=== PATIENT | female | born 1970 | race Two or more races ===

== ENCOUNTER 2023-12-13 18:35 | Emergency (ER) | payer OTHER, SELFPAY ==
[2023-12-13 18:38] VITALS: BP 168/104; BMI 18.3
--- NOTE | 2023-12-13 23:25 | ED.SKININJ ---
HPI-Injury
<Yasmin Jimenez NP - Last Filed: 12/14/23 17:06>
General
Chief Complaint: Skin Surface Trauma
Source: patient
Exam Limitations: none
Time Seen by Provider: 12/13/23 20:39
Nursing documentation reviewed up to this point in time: agreed with
Travel History
Have you had any contact with someone who has COVID-19?: No
Do you have any symptoms of coronavirus? Fever > 100 degrees, chills, cough, shortness of breath, sore throat, loss of taste or smell, muscle aches, or headache?: No
History of Present Illness-Injury
Is this injury a work related problem?: No
Is pt an associate of [facility]?: No
Initial Injury comments:
Patient to ED for eval of blister to left 3rd toe. States she developed redness and swelling to toe and foot over theh weekend. No historyo f trauma. She was seen at on Sunday andplaced on Clindamycin 300mg tid. States erythema has improved
but blister is larger. brought to ED by family for eval. Denies any pain, fever/chills.
Past History
<Yasmin Jimenez NP - Last Filed: 12/14/23 17:06>
Past History
ED Past Medical History: None
ED Past Surgical History: None
Review of Systems
<Yasmin Jimenez NP - Last Filed: 12/14/23 17:06>
Review of Systems
Allergies reviewed?: Yes
All Other Systems: ROS reviewed and negative except as documented in HPI and ROS
Constitutional: Reports no symptoms
Musculoskeletal: Reports no symptoms
Skin: Reports other (blister left dorsal 3rd toe)
Neurological: Reports no symptoms
Psychiatric: Reports no symptoms
Phy Exam
<Yasmin Jimenez NP - Last Filed: 12/14/23 17:06>
General Physical Exam
General Presentation: well appearing and no apparent distress
General age: appears stated age
General Skin: warm and dry
General Habitus: normal
Musculoskeletal Exam
Musculoskeletal Exam: full ROM, no edema and neuro vasc intact (Strong DP/PT pulses. )
Skin Exam
Skin Exam: warm/dry, no rash and other (left dorsal 3rd toe blister de-roofed. Culture obtained. Base of wound pink. Minimal surrounding erythema. )
Psychiatric Exam
Psychiatric Exam: normal mood/affect
Course
<Yasmin Jimenez NP - Last Filed: 12/14/23 17:06>
Orders/Labs/Results
Orders:
Orders
12/13/23 21:21
Wound Culture [Wound/Abscess/Other Culture] Urgent
ANTONI Source: Toe
Specimen Description:
Date Specimen was Collected: 12/13/23
Time Specimen was Collected: 21:12
Vital Signs
Initial and Last Documented VS:
Initial Vital Signs
Temp Pulse Resp BP Pulse Ox
98 F 79 16 168/104 99
12/13/23 18:38 12/13/23 18:38 12/13/23 18:38 12/13/23 18:38 12/13/23 18:38
Last Documented Vital Signs
Temp Pulse Resp BP Pulse Ox
98 F 79 16 168/104 99
12/13/23 18:38 12/13/23 18:38 12/13/23 18:38 12/13/23 18:38 12/13/23 18:38
<Aravind Henriquez PA-C - Last Filed: 12/17/23 08:03>
Orders/Labs/Results
Orders:
Orders
12/13/23 21:21
Wound Culture [Wound/Abscess/Other Culture] Urgent
ANTONI Source: Toe
Specimen Description:
Date Specimen was Collected: 12/13/23
Time Specimen was Collected: 21:12
Vital Signs
Initial and Last Documented VS:
Initial Vital Signs
Temp Pulse Resp BP Pulse Ox
98 F 79 16 168/104 99
12/13/23 18:38 12/13/23 18:38 12/13/23 18:38 12/13/23 18:38 12/13/23 18:38
Last Documented Vital Signs
Temp Pulse Resp BP Pulse Ox
98 F 79 16 168/104 99
12/13/23 18:38 12/13/23 18:38 12/13/23 18:38 12/13/23 18:38 12/13/23 18:38
<Yasmin Jimenez NP - Last Filed: 12/14/23 17:06>
*Critical Care Note
Total Time (30-74mins, 75-104mins- exclusive of procedures): Not Applicable
<Aravind Henriquez PA-C - Last Filed: 12/17/23 08:03>
Update Note
Update Note:
8 AM December 16: Wound culture positive for MRSA. This was resistant to clindamycin. Spoke with patient. Called in Bactrim instead.
ED Attending Note
<Yasmin Jimenez NP - Last Filed: 12/14/23 17:06>
-
Portions of this chart may have been created with voice recognition software.� Occasional wrong word or��sound alike� substitutions may have occurred due to the inherent limitations of voice recognition software.
Discharge Plan
Departure
Patient Disposition: Home (Routine Discharge)
Date of Disposition: 12/13/23
Time of Disposition: 21:09
Patient with high blood pressure during this ER visit?: No
Condition: Good
Covid-19: Not Applicable
Discharge Problem:
Wound, open, toe
Instructions: Wound Care (DC)
Prescriptions:
New
clindamycin HCl 300 mg capsule
300 mg PO TID Qty: 15 0RF
sulfamethoxazole-trimethoprim [Bactrim DS] 800-160 mg tablet
1 tab PO BID Qty: 14 0RF
No Action
clindamycin HCl 300 mg capsule
300 mg PO Q8H
Referrals:
Lito Sen MD [Family Provider] -
Activity Restrictions/Additional Instructions:
Keep foot elevated. Warm compresses or soaks to toe 15-20 minutes at a time, 4-5 times daily. Return to the emergency department immediately for fever/chills, increasing pain/redness/swelling of toe/foot, or for any further concerns.
Interventions
Interventions:
*Risk Screen - Suicide Last Done: 12/13/23 18:38
*General Assessment Last Done: 12/13/23 21:23
*Neglect/Abuse Screening Last Done: 12/13/23 18:38
ED- Fall Risk Assessment Last Done: 12/13/23 18:38
*ED COVID-19 Vaccine History Last Done: 12/13/23 21:23
*Nursing Disposition Last Done: 12/13/23 21:23
ED-Skin Assessment Last Done: 12/13/23 21:23
Discharge Date and Time
Discharge Date/Time: 12/13/23 21:25
Print Language: OCCITAN
== END 2023-12-13 21:25 | disposition home or self-care (01) ==
LOC: EMR 18:35
PROVIDERS: EMERGENCY PHYSICIAN Emergency Medicine; FAMILY PHYSICIAN Internal Medicine
DX: S91.105A Unspecified open wound of left lesser toe(s) without damage to nail, initial encounter (principal); X58.XXXA Exposure to other specified factors, initial encounter
CPT/HCPCS: 99283; 87070; 87147; 87186; 87205